=== PATIENT | female | born 1955 | race American Indian/Alaskan Native ===

== ENCOUNTER 2021-02-08 10:24 | Outpatient (CLI) | payer MEDICARE ==
--- NOTE | 2021-02-08 12:51 | Magnetic Resonance Report ---
MRI LEFT SHOULDER WITHOUT CONTRAST INDICATION / CLINICAL INFORMATION: INCOMPLETE ROTATOR CUFF TEAR, lt shoulder pain and limited range of motion.. TECHNIQUE: Multiplanar, multisequence MR images were obtained. No contrast used. COMPARISON: None available. FINDINGS: SUPRASPINATUS: Moderate tendinosis with low-grade partial articular surface tear in the posterior terrance tplate insertion measuring about 2 mm. No significant tendon retraction or muscle atrophy. INFRASPINATUS: No significant abnormality. SUBSCAPULARIS: No significant abnormality. BICEPS TENDON, LONG HEAD: No significant abnormality. GLENOID LABRUM: No significant abnormality. ARTICULAR CARTILAGE: No significant abnormality. JOINT SPACE AND CAPSULE: No significant abnormality. ACROMION and A.C. JOINT: Mild DJD without significant encroachment. SUBACROMIAL/SUBDELTOID SPACE: No significant abnormality. BONES: No significant bone marrow edema. No fracture. No osseous lesion. SOFT TISSUES: No significant abnormality. ADDITIONAL FINDINGS: None. IMPRESSION: 1. Supraspinatus tendinosis with low-grade partial articular surface tear without tendon retraction o r muscle atrophy. 2. Mild AC joint DJD. Signer Name: Jensen Gonzales MD Signed: 02/08/2021 12:47 PM Workstation Name: [id number]
== END 2021-02-08 10:25 | disposition home or self-care (01) ==
LOC: MRI 10:24
PROVIDERS: ATTEND Orthopaedic Surgery
DX: M75.112 Incomplete rotator cuff tear or rupture of left shoulder, not specified as traumatic (principal); M19.012 Primary osteoarthritis, left shoulder